=== PATIENT | male | born 1945 | race Two or more races ===

== ENCOUNTER → 2018-02-02 | Emergency (ER) | payer OTHER ==
[~2018-02-02] VITALS: Ht 170.2 cm; Wt 83.0 kg
[~2018-02-02] MED LIST: ZOCOR20 MG
== END | disposition home or self-care (01) ==
LOC: ER 09:16
DX: S39.012A Strain of muscle, fascia and tendon of lower back, initial encounter (principal); X50.0XXA Overexertion from strenuous movement or load, initial encounter; Y93.E1 Activity, personal bathing and showering; Y92.89 Other specified places as the place of occurrence of the external cause; Y99.8 Other external cause status

== ENCOUNTER 2018-05-11 10:25 | Emergency (ER) | payer OTHER ==
[~2018-05-11] VITALS: Ht 170.2 cm; Wt 77.1 kg
[2018-05-11] MEDS ORDERED: INTESTINEX680 M1 PO (13:31)
== END 2018-05-11 13:42 | disposition home or self-care (01) ==
LOC: ER 10:25
DX: K29.00 Acute gastritis without bleeding (principal)

== ENCOUNTER 2018-05-13 10:21 | Emergency (ER) | payer OTHER ==
[~2018-05-13] VITALS: Ht 170.2 cm; Wt 77.1 kg
[~2018-05-13 10:21] MED LIST changes: +INTESTINEX680 M1 PO
[2018-05-13] MEDS ORDERED: XANAX0.25 MG PO (16:01)
== END 2018-05-13 16:24 | disposition home or self-care (01) ==
LOC: ER 10:21
DX: K29.00 Acute gastritis without bleeding (principal)

== ENCOUNTER → 2019-12-02 | Outpatient (CLI) | payer OTHER ==
[~2019-12-02] MED LIST changes: +XANAX0.25 MG PO
== END | disposition home or self-care (01) ==
LOC: TOM 08:46
DX: C61 Malignant neoplasm of prostate (principal)

== ENCOUNTER 2019-12-09 08:02 | Emergency (ER) | payer OTHER ==
[~2019-12-09] VITALS: Ht 170.2 cm; Wt 73.9 kg
[2019-12-09] MEDS ORDERED: CASODEX50 MG PO (08:19)
== END 2019-12-09 10:39 | disposition home or self-care (01) ==
LOC: ER 08:02
DX: G44.40 Drug-induced headache, not elsewhere classified, not intractable (principal); T50.995A Adverse effect of other drugs, medicaments and biological substances, initial encounter; Y92.89 Other specified places as the place of occurrence of the external cause